=== PATIENT | male | born 1970 | race African-American/Black ===

== ENCOUNTER 2017-07-22 09:54 | Inpatient (IN) | payer MEDICAID, OTHER ==
[~2017-07-22] VITALS: Ht 165.1 cm; Wt 123.4 kg
[2017-07-22] VITALS (24 sets, daily range): BP systolic 155–224; BP diastolic 91–136
[2017-07-22] MEDS ORDERED: ASPIRIN 81MG TABLET PO ONE (10:45)
[2017-07-22] MEDS ORDERED: NITROGLYCERIN OINT 1GM/INCH UDPKT TD ONE (10:45)
[2017-07-22] MEDS ORDERED: FUROSEMIDE 40MG/4ML VIAL IV ONE (10:45)
[2017-07-22 10:47] LABS: BASOPHILS % 1.4 % (0.0-2.0); EOSINOPHILS % 3.7 % (0.0-5.0); HEMATOCRIT. 41.7 % (42.0-52.0); LYMPHOCYTES % 19.6 % (20.0-50.0); MEAN CORPUSCULAR HEMOGLOBIN 27.1 pg (28.0-32.0); MEAN PLATELET VOLUME 7.8 fl (7.4-10.4); MONOCYTES % 11.2 % (2.0-8.0); NEUTROPHILS % 64.1 % (40.0-76.0); PLATELET 366 x1000/uL (130-400); RED BLOOD CELL COUNT 5.15 mill/uL (4.7-6.1); RED CELL DISTRIBUTION WIDTH 16.4 % (11.6-14.6)
[2017-07-22 10:54] LABS: CHLORIDE 103 mEq/L (98-107)
[2017-07-22 10:55] LABS: PROTHROMBIN TIME 10.4 sec (9.4-11.6)
[2017-07-22] MEDS ORDERED: NITROGLYCERIN 0.4MG TABLET SL SL ONE (11:45)
[2017-07-22] MEDS ORDERED: DEXTROSE 50% WATER 50ML SYRINGE IV ONE (11:45)
[2017-07-22] MEDS ORDERED: INSULIN REGULAR (HUMULIN R) 300UNITS/3ML IV ONE (11:45)
[2017-07-22] MEDS: ALBUTEROL (0.083%) 2.5MG/3ML NEB HHN SCH ×4 (12:00→13:57)
[2017-07-22 12:03] LABS: *AMPHETAMINES SCREEN URINE NEGATIVE (NEGATIVE); *BARBITURATES SCREEN URINE NEGATIVE (NEGATIVE); *BENZODIAZEPINES SCREEN URINE NEGATIVE (NEGATIVE); *COCAINE SCREEN URINE NEGATIVE (NEGATIVE); METHADONE URINE SCREEN NEGATIVE (NEGATIVE)
[2017-07-22 12:04] LABS: CANNABINOID URINE SCREEN NEGATIVE (NEGATIVE); OPIATES URINE SCREEN NEGATIVE (NEGATIVE); PHENCYCLIDINE URINE SCREEN NEGATIVE (NEGATIVE)
[2017-07-22] MEDS ORDERED: NITROGLYCERIN 50MG PREMIX 250 ML IV ONE (12:45)
[2017-07-22] MEDS ORDERED: LOSARTAN POTASSIUM 50 MG TABLET PO SCH (15:45)
[2017-07-22] MEDS: FUROSEMIDE 40MG/4ML VIAL IVP SCH (18:18)
[2017-07-22] MEDS: CARVEDILOL 6.25 MG TABLET PO SCH (18:19)
[2017-07-22] MEDS ORDERED: ONDANSETRON HCL 4MG/2ML VIAL IV PRN (18:30)
[2017-07-22] MEDS ORDERED: MAGNESIUM/ALUMINUM HYDROXIDE/SIMETHICONE 30ML UDC PO PRN (18:30)
[2017-07-22] MEDS: NITROGLYCERIN 50MG PREMIX 250 ML IV PRN ×2 (18:46→23:49)
[2017-07-22] MEDS ORDERED: DEXTROSE 50% WATER 50ML SYRINGE IV PRN (19:15)
[2017-07-22] MEDS: FAMOTIDINE 20MG TABLET PO SCH (20:41)
[2017-07-22] MEDS: BLOOD SUGAR DIAGNOSTIC STRIP TEST SCH (20:42)
[2017-07-22] MEDS: INSULIN LISPRO 100 UNITS/ML SUBCUT SCH (20:42)
[2017-07-22] MEDS ORDERED: AMLODIPINE 5MG TABLET PO SCH (21:00)
[2017-07-22] MEDS: ACETAMINOPHEN 325MG TABLET PO PRN (21:03)
[2017-07-22 21:29] LABS: CLARITY URINE CLEAR (CLEAR); COLOR URINE YELLOW (YELLOW); KETONES URINE NEGATIVE (NEGATIVE); LEUKOCYTE ESTERASE URINE NEGATIVE (NEGATIVE); NITRITE URINE NEGATIVE (NEGATIVE); OCCULT BLOOD URINE TRACE (NEGATIVE); PH URINE 6.5 (4.5-8.0); PROTEIN URINE 3+ (NEGATIVE); SPECIFIC GRAVITY URINE 1.016 (1.005-1.030)
[2017-07-22] MEDS ORDERED: NITROGLYCERIN OINT 1GM/INCH UDPKT TD SCH (22:00)
[2017-07-23] VITALS (70 sets, daily range): BP systolic 130–198; BP diastolic 73–126
[2017-07-23] MEDS: NITROGLYCERIN 50MG PREMIX 250 ML IV PRN (04:32)
[2017-07-23] MEDS: FUROSEMIDE 40MG/4ML VIAL IVP SCH ×2 (06:16→16:59)
[2017-07-23] MEDS: INSULIN LISPRO 100 UNITS/ML SUBCUT SCH ×4 (06:17→21:29)
[2017-07-23] MEDS: BLOOD SUGAR DIAGNOSTIC STRIP TEST SCH ×3 (06:17→21:28)
[2017-07-23 06:21] LABS: CHLORIDE 101 mEq/L (98-107)
[2017-07-23 06:31] LABS: BASOPHILS % 0.5 % (0.0-2.0); EOSINOPHILS % 1.1 % (0.0-5.0); HEMATOCRIT. 35.9 % (42.0-52.0); HEMOGLOBIN. 11.9 g/dL (14.0-18.0); LYMPHOCYTES % 10.9 % (20.0-50.0); MEAN CORPUSCULAR HEMOGLOBIN 26.9 pg (28.0-32.0); MEAN CORPUSCULAR VOLUME 81.1 fL (80.0-94.0); MEAN PLATELET VOLUME 7.8 fl (7.4-10.4); MONOCYTES % 13.9 % (2.0-8.0); NEUTROPHILS % 73.6 % (40.0-76.0); PLATELET 324 x1000/uL (130-400); RED BLOOD CELL COUNT 4.43 mill/uL (4.7-6.1); RED CELL DISTRIBUTION WIDTH 16.3 % (11.6-14.6)
[2017-07-23 06:32] LABS: CREATINE KINASE 134 IU/L (39-308)
[2017-07-23 06:34] LABS: CREATINE KINASE MB FRACTION < 0.5 ng/mL (0.5-3.6)
[2017-07-23] MEDS: LOSARTAN POTASSIUM 50 MG TABLET PO SCH ×2 (09:46→21:28)
[2017-07-23] MEDS: POTASSIUM CHLORIDE 20MEQ TABLET SR PO SCH (09:46)
[2017-07-23] MEDS: NIFEDIPINE XL 60MG TAB PO SCH ×2 (09:46→21:28)
[2017-07-23] MEDS: CARVEDILOL 6.25 MG TABLET PO SCH ×2 (09:46→16:59)
[2017-07-23] MEDS ORDERED: MAGNESIUM 2 G PREMIX 50 ML IV SCH (11:00)
[2017-07-23] MEDS: CLONIDINE 0.1MG TABLET PO PRN ×2 (12:30→21:47)
[2017-07-23] MEDS: CLONIDINE 0.2MG TABLET PO SCH ×2 (14:48→21:51)
[2017-07-23] MEDS: HYDRALAZINE HCL 50MG TABLET PO SCH ×2 (14:48→21:48)
[2017-07-23 18:04] LABS: BG BASE EXCESS 1.3 mmol/L (-2.0-2.0); BG CARBOXYHEMOGLOBIN 0.5 % (0.5-1.5); BG DEOXYHEMOGLOBIN 5.1 % (0.0-5.0); BG HCO3 ACT 24.1 mmol/L (22.0-26.0); BG METHEMOGLOBIN 0.3 % (0.0-1.5); BG OXYGEN SATURATION 94.9 % (92.0-98.5); BG OXYHEMOGLOBIN 94.1 % (94.0-97.0); BG PCO2 32.7 mmHg (35.0-45.0); BG PH 7.485 (7.350-7.450); BG PO2 73.4 mmHg (75.0-100.0); BG SAMPLE SITE RIGHT RADIAL; BG TOTAL HEMOGLOBIN 13.7 g/dL (12.0-18.0); BG VENT MODE ROOM AIR
[2017-07-23 18:13] LABS: INR 1.1; PROTHROMBIN TIME 10.9 sec (9.4-11.6)
[2017-07-23] MEDS ORDERED: BLOOD SUGAR DIAGNOSTIC STRIP TEST SCH (21:00)
[2017-07-23] MEDS: FAMOTIDINE 20MG TABLET PO SCH (21:28)
[2017-07-24] VITALS (31 sets, daily range): BP systolic 108–166; BP diastolic 58–92
[2017-07-24] MEDS: BLOOD SUGAR DIAGNOSTIC STRIP TEST SCH ×4 (05:57→21:49)
[2017-07-24] MEDS: HYDRALAZINE HCL 50MG TABLET PO SCH ×3 (06:00→21:48)
[2017-07-24] MEDS: CLONIDINE 0.2MG TABLET PO SCH (06:00)
[2017-07-24] MEDS: INSULIN LISPRO 100 UNITS/ML SUBCUT SCH ×4 (06:09→21:50)
[2017-07-24] MEDS: FUROSEMIDE 40MG/4ML VIAL IVP SCH (06:17)
[2017-07-24 06:24] LABS: BASOPHILS % 0.5 % (0.0-2.0); EOSINOPHILS % 3.7 % (0.0-5.0); HEMATOCRIT. 38.2 % (42.0-52.0); HEMOGLOBIN. 12.7 g/dL (14.0-18.0); LYMPHOCYTES % 15.7 % (20.0-50.0); MEAN CORPUSCULAR VOLUME 81.4 fL (80.0-94.0); MEAN PLATELET VOLUME 7.8 fl (7.4-10.4); MONOCYTES % 13.5 % (2.0-8.0); NEUTROPHILS % 66.6 % (40.0-76.0); PLATELET 351 x1000/uL (130-400); RED BLOOD CELL COUNT 4.69 mill/uL (4.7-6.1); RED CELL DISTRIBUTION WIDTH 16.3 % (11.6-14.6)
[2017-07-24] MEDS: POTASSIUM CHLORIDE 20MEQ TABLET SR PO SCH (10:09)
[2017-07-24] MEDS: NIFEDIPINE XL 60MG TAB PO SCH ×2 (10:09→21:48)
[2017-07-24] MEDS: LOSARTAN POTASSIUM 50 MG TABLET PO SCH ×2 (10:09→21:48)
[2017-07-24] MEDS: CARVEDILOL 6.25 MG TABLET PO SCH ×2 (10:10→18:12)
[2017-07-24] MEDS ORDERED: LIDOCAINE HCL/PF 1% 10 MG/ML 5ML VIAL ONE (10:33)
[2017-07-24] MEDS: IPRATROPIUM/ALBUTEROL 0.5-3(2.5)MG/3ML NEB INH PRN ×2 (11:54→20:55)
[2017-07-24] MEDS: DOCUSATE SODIUM 100MG CAPSULE PO PRN (13:26)
[2017-07-24] MEDS: CLONIDINE 0.1MG TABLET PO SCH ×2 (13:26→21:48)
[2017-07-24 17:26] LABS: ETHANOL BLOOD < 10 mg/dL
[2017-07-24 17:32] LABS: T4 FREE 1.05 ng/dL (0.76-1.46)
[2017-07-24 18:07] LABS: FOLIC ACID (FOLATE) SERUM 12.3 ng/mL (>5.38)
[2017-07-24] MEDS: FAMOTIDINE 20MG TABLET PO SCH (21:46)
[2017-07-25] VITALS: BP 142/94
[2017-07-25 04:00] VITALS: BP 140/90
[2017-07-25] MEDS: HYDRALAZINE HCL 50MG TABLET PO SCH ×3 (06:19→21:28)
[2017-07-25] MEDS: CLONIDINE 0.1MG TABLET PO SCH ×3 (06:19→21:25)
[2017-07-25] MEDS: DOCUSATE SODIUM 100MG CAPSULE PO PRN (06:19)
[2017-07-25] MEDS: BLOOD SUGAR DIAGNOSTIC STRIP TEST SCH ×4 (07:00→21:20)
[2017-07-25] MEDS: INSULIN LISPRO 100 UNITS/ML SUBCUT SCH ×4 (07:00→21:22)
[2017-07-25 08:00] VITALS: BP 122/74
[2017-07-25 08:06] LABS: BG CARBOXYHEMOGLOBIN 0.1 % (0.5-1.5); BG DEOXYHEMOGLOBIN 4.1 % (0.0-5.0); BG METHEMOGLOBIN 0.1 % (0.0-1.5); BG OXYGEN SATURATION 95.9 % (92.0-98.5); BG OXYHEMOGLOBIN 95.7 % (94.0-97.0); BG PH 7.479 (7.350-7.450); BG PO2 80.3 mmHg (75.0-100.0); BG SAMPLE SITE RIGHT RADIAL; BG VENT MODE ROOM AIR
[2017-07-25] MEDS: GUAIFENESIN/CODEINE 200-20MG/10ML UDC PO PRN ×2 (10:27→16:59)
[2017-07-25] MEDS: BENZONATATE 100MG CAPSULE PO SCH ×3 (10:27→21:24)
[2017-07-25] MEDS: NIFEDIPINE XL 60MG TAB PO SCH ×2 (10:28→21:25)
[2017-07-25] MEDS: CARVEDILOL 6.25 MG TABLET PO SCH ×2 (10:28→16:59)
[2017-07-25] MEDS: LOSARTAN POTASSIUM 50 MG TABLET PO SCH ×2 (10:28→21:25)
[2017-07-25 11:12] LABS: HEMATOCRIT. 39.8 % (42.0-52.0); MEAN CORPUSCULAR HEMOGLOBIN 26.7 pg (28.0-32.0); MEAN CORPUSCULAR VOLUME 81.6 fL (80.0-94.0); MEAN PLATELET VOLUME 7.8 fl (7.4-10.4); PLATELET 361 x1000/uL (130-400); RED BLOOD CELL COUNT 4.88 mill/uL (4.7-6.1); RED CELL DISTRIBUTION WIDTH 16.2 % (11.6-14.6)
[2017-07-25 12:00] VITALS: BP 132/71
[2017-07-25] MEDS ORDERED: REGADENOSON 0.4 MG/5 ML IV ONE (15:45)
[2017-07-25 16:06] VITALS: BP 136/86
[2017-07-25 19:12] LABS: PLATELET ESTIMATE NORMAL
[2017-07-25 20:00] VITALS: BP 121/72
[2017-07-25] MEDS: FAMOTIDINE 20MG TABLET PO SCH (21:24)
[2017-07-26] VITALS: BP 133/71
[2017-07-26 04:00] VITALS: BP 150/89
[2017-07-26] MEDS: CLONIDINE 0.1MG TABLET PO SCH ×3 (05:32→21:34)
[2017-07-26] MEDS: HYDRALAZINE HCL 50MG TABLET PO SCH ×3 (05:32→21:34)
[2017-07-26] MEDS: BENZONATATE 100MG CAPSULE PO SCH ×3 (05:35→21:33)
[2017-07-26 07:04] LABS: HEMATOCRIT. 39.2 % (42.0-52.0); MEAN CORPUSCULAR HEMOGLOBIN 26.9 pg (28.0-32.0); MEAN CORPUSCULAR VOLUME 81.3 fL (80.0-94.0); PLATELET 350 x1000/uL (130-400); RED BLOOD CELL COUNT 4.82 mill/uL (4.7-6.1); RED CELL DISTRIBUTION WIDTH 16.3 % (11.6-14.6)
[2017-07-26] MEDS: INSULIN LISPRO 100 UNITS/ML SUBCUT SCH ×4 (07:04→21:33)
[2017-07-26] MEDS: BLOOD SUGAR DIAGNOSTIC STRIP TEST SCH ×4 (07:04→21:35)
[2017-07-26] MEDS ORDERED: REGADENOSON 0.4 MG/5 ML IV ONE (08:14)
[2017-07-26 09:10] LABS: ANTI-NUCLEAR ANTIBODIES DIRECT Negative (Negative)
[2017-07-26 09:28] VITALS: BP 120/69
[2017-07-26] MEDS: LOSARTAN POTASSIUM 50 MG TABLET PO SCH ×2 (09:44→21:34)
[2017-07-26] MEDS: CARVEDILOL 6.25 MG TABLET PO SCH ×3 (09:50→17:31)
[2017-07-26] MEDS: NIFEDIPINE XL 60MG TAB PO SCH ×2 (09:50→21:33)
[2017-07-26 10:00] VITALS: BP 134/84
[2017-07-26 16:00] VITALS: BP 115/73
[2017-07-26] MEDS: DOCUSATE SODIUM 100MG CAPSULE PO PRN (17:30)
[2017-07-26 20:00] VITALS: BP 143/77
[2017-07-26] MEDS: FAMOTIDINE 20MG TABLET PO SCH (21:34)
[2017-07-26] MEDS: POLYETHYLENE GLYCOL 3350 (17GM) 1 DOSE PACK PO SCH (21:35)
[2017-07-27] VITALS: BP 119/66
[2017-07-27] MEDS: HYDROCODONE/ACETAMINOPHEN 5/325MG TABLET PO PRN ×2 (00:03→10:08)
[2017-07-27 04:00] VITALS: BP 147/90
[2017-07-27] MEDS: CLONIDINE 0.1MG TABLET PO SCH ×3 (06:21→21:36)
[2017-07-27] MEDS: HYDRALAZINE HCL 50MG TABLET PO SCH ×3 (06:21→21:10)
[2017-07-27] MEDS: BENZONATATE 100MG CAPSULE PO SCH ×3 (06:21→21:37)
[2017-07-27] MEDS: BLOOD SUGAR DIAGNOSTIC STRIP TEST SCH ×4 (06:21→21:37)
[2017-07-27 07:25] LABS: PLATELET ESTIMATE NORMAL
[2017-07-27] MEDS: INSULIN LISPRO 100 UNITS/ML SUBCUT SCH ×4 (07:31→21:29)
[2017-07-27 08:00] VITALS: BP 136/76
[2017-07-27] MEDS: CARVEDILOL 6.25 MG TABLET PO SCH ×2 (08:52→18:07)
[2017-07-27] MEDS: NIFEDIPINE XL 60MG TAB PO SCH ×2 (08:52→21:10)
[2017-07-27] MEDS: POLYETHYLENE GLYCOL 3350 (17GM) 1 DOSE PACK PO SCH (08:53)
[2017-07-27] MEDS: LOSARTAN POTASSIUM 50 MG TABLET PO SCH ×2 (08:53→21:37)
[2017-07-27 12:00] VITALS: BP 138/75
[2017-07-27 12:23] LABS: HEMATOCRIT. 36.7 % (42.0-52.0); HEMOGLOBIN. 12.1 g/dL (14.0-18.0); MEAN CORPUSCULAR HEMOGLOBIN 26.6 pg (28.0-32.0); MEAN CORPUSCULAR VOLUME 80.5 fL (80.0-94.0); MEAN PLATELET VOLUME 7.2 fl (7.4-10.4); PLATELET 377 x1000/uL (130-400); RED BLOOD CELL COUNT 4.56 mill/uL (4.7-6.1)
[2017-07-27 12:43] LABS: PLATELET ESTIMATE NORMAL
[2017-07-27 16:00] VITALS: BP 126/75
[2017-07-27 20:00] VITALS: BP 147/90
[2017-07-27] MEDS: FAMOTIDINE 20MG TABLET PO SCH (21:10)
[2017-07-28] VITALS: BP 148/90
[2017-07-28] MEDS: ACETAMINOPHEN 325MG TABLET PO PRN (01:46)
[2017-07-28 04:00] VITALS: BP 148/82
[2017-07-28] MEDS: INSULIN LISPRO 100 UNITS/ML SUBCUT SCH ×4 (06:51→21:00)
[2017-07-28] MEDS: HYDRALAZINE HCL 50MG TABLET PO SCH ×3 (06:52→21:25)
[2017-07-28] MEDS: BLOOD SUGAR DIAGNOSTIC STRIP TEST SCH ×4 (06:53→21:00)
[2017-07-28] MEDS: CLONIDINE 0.1MG TABLET PO SCH ×3 (06:53→21:24)
[2017-07-28] MEDS: BENZONATATE 100MG CAPSULE PO SCH ×3 (06:53→21:25)
[2017-07-28 06:57] LABS: HEMATOCRIT. 36.4 % (42.0-52.0); HEMOGLOBIN. 12.3 g/dL (14.0-18.0); MEAN CORPUSCULAR HEMOGLOBIN 27.5 pg (28.0-32.0); MEAN CORPUSCULAR VOLUME 81.2 fL (80.0-94.0); MEAN PLATELET VOLUME 7.8 fl (7.4-10.4); PLATELET 396 x1000/uL (130-400); RED BLOOD CELL COUNT 4.48 mill/uL (4.7-6.1); RED CELL DISTRIBUTION WIDTH 16.2 % (11.6-14.6)
[2017-07-28] MEDS ORDERED: HYDROCODONE/ACETAMINOPHEN 5/325MG TABLET PO PRN (07:45)
[2017-07-28 08:00] VITALS: BP 125/94
[2017-07-28] MEDS: LOSARTAN POTASSIUM 50 MG TABLET PO SCH ×2 (08:14→21:25)
[2017-07-28] MEDS: NIFEDIPINE XL 60MG TAB PO SCH ×2 (08:14→21:25)
[2017-07-28] MEDS: CARVEDILOL 6.25 MG TABLET PO SCH ×2 (08:15→17:22)
[2017-07-28] MEDS: POLYETHYLENE GLYCOL 3350 (17GM) 1 DOSE PACK PO SCH (08:17)
[2017-07-28 10:38] LABS: PLATELET ESTIMATE NORMAL
[2017-07-28 12:00] VITALS: BP 148/84
[2017-07-28 16:00] VITALS: BP 153/83
[2017-07-28] MEDS ORDERED: COLCHICINE 0.6MG TABLET PO NR (17:00)
[2017-07-28 20:00] VITALS: BP 150/81
[2017-07-28] MEDS: COLCHICINE 0.6MG TABLET PO SCH (21:25)
[2017-07-28] MEDS: FAMOTIDINE 20MG TABLET PO SCH (21:25)
[2017-07-29 00:01] VITALS: BP 136/81
[2017-07-29 04:00] VITALS: BP 133/74
[2017-07-29] MEDS: CLONIDINE 0.1MG TABLET PO SCH ×3 (05:56→23:25)
[2017-07-29] MEDS: INSULIN LISPRO 100 UNITS/ML SUBCUT SCH ×4 (05:56→22:07)
[2017-07-29] MEDS: BENZONATATE 100MG CAPSULE PO SCH ×3 (05:56→22:05)
[2017-07-29] MEDS: BLOOD SUGAR DIAGNOSTIC STRIP TEST SCH ×4 (05:56→21:28)
[2017-07-29] MEDS: HYDRALAZINE HCL 50MG TABLET PO SCH ×2 (05:59→22:05)
[2017-07-29 06:33] LABS: HEMATOCRIT. 36.6 % (42.0-52.0); HEMOGLOBIN. 12.1 g/dL (14.0-18.0); MEAN CORPUSCULAR HEMOGLOBIN 26.7 pg (28.0-32.0); MEAN CORPUSCULAR VOLUME 80.7 fL (80.0-94.0); MEAN PLATELET VOLUME 7.5 fl (7.4-10.4); PLATELET 397 x1000/uL (130-400); RED BLOOD CELL COUNT 4.54 mill/uL (4.7-6.1); RED CELL DISTRIBUTION WIDTH 16.1 % (11.6-14.6)
[2017-07-29 08:00] VITALS: BP 121/72
[2017-07-29] MEDS ORDERED: ALLOPURINOL 100 MG TABLET PO SCH (09:00)
[2017-07-29] MEDS: POLYETHYLENE GLYCOL 3350 (17GM) 1 DOSE PACK PO SCH (09:00)
[2017-07-29] MEDS: LOSARTAN POTASSIUM 50 MG TABLET PO SCH ×2 (09:08→22:05)
[2017-07-29] MEDS: COLCHICINE 0.6MG TABLET PO SCH ×2 (09:08→22:05)
[2017-07-29] MEDS: NIFEDIPINE XL 60MG TAB PO SCH ×2 (09:09→22:06)
[2017-07-29] MEDS: CARVEDILOL 6.25 MG TABLET PO SCH ×2 (09:09→16:59)
[2017-07-29 12:00] VITALS: BP 149/84
[2017-07-29 13:02] LABS: PLATELET ESTIMATE NORMAL
[2017-07-29 16:00] VITALS: BP 165/93
[2017-07-29 20:00] VITALS: BP 156/86
[2017-07-29] MEDS: FAMOTIDINE 20MG TABLET PO SCH (22:05)
[2017-07-29] MEDS: METHYLPREDNISOLONE SOD SUCC 40 MG/ML VIAL IV SCH (23:29)
[2017-07-30] VITALS: BP 158/90
[2017-07-30 04:00] VITALS: BP 158/91
[2017-07-30] MEDS: METHYLPREDNISOLONE SOD SUCC 40 MG/ML VIAL IV SCH ×3 (06:02→17:33)
[2017-07-30] MEDS: BLOOD SUGAR DIAGNOSTIC STRIP TEST SCH ×4 (06:09→21:11)
[2017-07-30] MEDS: BENZONATATE 100MG CAPSULE PO SCH ×3 (06:43→22:07)
[2017-07-30] MEDS: INSULIN LISPRO 100 UNITS/ML SUBCUT SCH ×4 (06:43→22:10)
[2017-07-30] MEDS: CLONIDINE 0.1MG TABLET PO SCH ×3 (06:43→22:08)
[2017-07-30] MEDS: HYDRALAZINE HCL 50MG TABLET PO SCH ×3 (06:43→22:08)
[2017-07-30 07:18] LABS: CHLORIDE 102 mEq/L (98-107)
[2017-07-30 07:19] LABS: BASOPHILS % 0.4 % (0.0-2.0); HEMOGLOBIN. 12.8 g/dL (14.0-18.0); LYMPHOCYTES % 9.9 % (20.0-50.0); MEAN CORPUSCULAR HEMOGLOBIN 26.6 pg (28.0-32.0); MEAN CORPUSCULAR VOLUME 81.3 fL (80.0-94.0); MEAN PLATELET VOLUME 7.7 fl (7.4-10.4); MONOCYTES % 3.9 % (2.0-8.0); NEUTROPHILS % 85.8 % (40.0-76.0); PLATELET 450 x1000/uL (130-400); RED CELL DISTRIBUTION WIDTH 15.7 % (11.6-14.6)
[2017-07-30 07:27] LABS: GAMMA GLUTAMYL TRANSPEPTIDASE 11 IU/L (11-50)
[2017-07-30 08:00] VITALS: BP 138/82
[2017-07-30] MEDS: LOSARTAN POTASSIUM 50 MG TABLET PO SCH ×2 (08:23→22:08)
[2017-07-30] MEDS: CARVEDILOL 6.25 MG TABLET PO SCH ×2 (08:23→17:33)
[2017-07-30] MEDS: NIFEDIPINE XL 60MG TAB PO SCH ×2 (08:24→22:08)
[2017-07-30] MEDS: POLYETHYLENE GLYCOL 3350 (17GM) 1 DOSE PACK PO SCH (08:24)
[2017-07-30] MEDS: ALLOPURINOL 100 MG TABLET PO SCH (08:25)
[2017-07-30 10:09] LABS: AChR BLOCKING ABS SERUM 18 % (0-25)
[2017-07-30 10:44] LABS: HEPATITIS B SURFACE ANTIGEN NEGATIVE
[2017-07-30 11:12] LABS: HEPATITIS B CORE AB IGM NEGATIVE
[2017-07-30 11:14] LABS: HEPATITIS A AB IGM NEGATIVE (NEGATIVE)
[2017-07-30 12:00] VITALS: BP 146/85
[2017-07-30 16:00] VITALS: BP 161/87
[2017-07-30 20:00] VITALS: BP 165/85
[2017-07-30] MEDS: FAMOTIDINE 20MG TABLET PO SCH (22:08)
[2017-07-31] VITALS (7 sets, daily range): BP systolic 126–168; BP diastolic 74–92
[2017-07-31] MEDS: METHYLPREDNISOLONE SOD SUCC 40 MG/ML VIAL IV SCH ×5 (00:45→23:07)
[2017-07-31] MEDS: BLOOD SUGAR DIAGNOSTIC STRIP TEST SCH ×4 (06:37→21:25)
[2017-07-31] MEDS: HYDRALAZINE HCL 50MG TABLET PO SCH ×3 (06:40→21:25)
[2017-07-31] MEDS: CLONIDINE 0.1MG TABLET PO SCH ×3 (06:41→21:25)
[2017-07-31] MEDS: INSULIN LISPRO 100 UNITS/ML SUBCUT SCH ×4 (06:43→20:59)
[2017-07-31] MEDS: BENZONATATE 100MG CAPSULE PO SCH ×3 (06:44→21:25)
[2017-07-31 06:57] LABS: HEMATOCRIT. 37.5 % (42.0-52.0); HEMOGLOBIN. 12.2 g/dL (14.0-18.0); MEAN CORPUSCULAR HEMOGLOBIN 26.5 pg (28.0-32.0); MEAN CORPUSCULAR VOLUME 81.4 fL (80.0-94.0); MEAN PLATELET VOLUME 7.5 fl (7.4-10.4); PLATELET 446 x1000/uL (130-400); RED BLOOD CELL COUNT 4.61 mill/uL (4.7-6.1); RED CELL DISTRIBUTION WIDTH 15.8 % (11.6-14.6)
[2017-07-31 07:15] LABS: PHOSPHORUS 4.1 mg/dL (2.5-4.9)
[2017-07-31] MEDS: LOSARTAN POTASSIUM 50 MG TABLET PO SCH ×2 (08:41→20:43)
[2017-07-31] MEDS: NIFEDIPINE XL 60MG TAB PO SCH ×2 (08:41→20:43)
[2017-07-31] MEDS: CARVEDILOL 6.25 MG TABLET PO SCH ×2 (08:41→17:53)
[2017-07-31] MEDS: ALLOPURINOL 100 MG TABLET PO SCH (08:42)
[2017-07-31] MEDS: POLYETHYLENE GLYCOL 3350 (17GM) 1 DOSE PACK PO SCH (08:42)
[2017-07-31 16:01] LABS: PLATELET ESTIMATE INCREASED
[2017-07-31 17:07] LABS: ANTI-DNA DOUBLE STRANDED QUANT < 1 IU/mL (0-9)
[2017-07-31] MEDS ORDERED: ALLOPURINOL 100 MG TABLET PO SCH (17:30)
[2017-07-31] MEDS: FAMOTIDINE 20MG TABLET PO SCH (20:43)
[2017-08-01] VITALS: BP 153/65
[2017-08-01 04:00] VITALS: BP 143/73
[2017-08-01] MEDS: HYDRALAZINE HCL 50MG TABLET PO SCH ×2 (05:53→13:22)
[2017-08-01] MEDS: CLONIDINE 0.1MG TABLET PO SCH ×2 (05:53→13:22)
[2017-08-01] MEDS: BENZONATATE 100MG CAPSULE PO SCH ×2 (05:54→13:22)
[2017-08-01] MEDS: INSULIN LISPRO 100 UNITS/ML SUBCUT SCH ×2 (06:03→13:24)
[2017-08-01] MEDS: BLOOD SUGAR DIAGNOSTIC STRIP TEST SCH ×2 (06:04→11:51)
[2017-08-01 07:22] LABS: HEMATOCRIT. 36.9 % (42.0-52.0); MEAN CORPUSCULAR HEMOGLOBIN 26.5 pg (28.0-32.0); MEAN CORPUSCULAR VOLUME 81.7 fL (80.0-94.0); MEAN PLATELET VOLUME 7.4 fl (7.4-10.4); PLATELET 495 x1000/uL (130-400); RED BLOOD CELL COUNT 4.52 mill/uL (4.7-6.1); RED CELL DISTRIBUTION WIDTH 15.7 % (11.6-14.6)
[2017-08-01 08:00] VITALS: BP 163/92
[2017-08-01] MEDS: LOSARTAN POTASSIUM 50 MG TABLET PO SCH (08:50)
[2017-08-01] MEDS: PREDNISONE 20MG TABLET PO SCH ×2 (08:50→13:21)
[2017-08-01] MEDS: NIFEDIPINE XL 60MG TAB PO SCH (08:50)
[2017-08-01] MEDS: POLYETHYLENE GLYCOL 3350 (17GM) 1 DOSE PACK PO SCH (08:51)
[2017-08-01] MEDS ORDERED: CARVEDILOL 12.5MG TABLET PO SCH (09:00)
[2017-08-01] MEDS ORDERED: ALLOPURINOL 300 MG TABLET PO SCH (09:00)
[2017-08-01 09:09] LABS: ALDOLASE 4.8 U/L (3.3-10.3); ANGIOTENSION CONVERTING ENZYME 26 U/L (14-82); COMPLEMENT C3 225 mg/dL (82-167)
[2017-08-01] MEDS ORDERED: ALLO300T2 PO (10:18)
[2017-08-01] MEDS ORDERED: BENZ100C86 PO (10:18)
[2017-08-01] MEDS ORDERED: LIP40 PO (10:18)
[2017-08-01] MEDS ORDERED: COR12 PO (10:18)
[2017-08-01] MEDS ORDERED: P20 PO (10:18)
[2017-08-01] MEDS ORDERED: FAMO20TA8 PO (10:18)
[2017-08-01] MEDS ORDERED: LOSA50TA3 PO (10:18)
[2017-08-01] MEDS ORDERED: HYDR-4135 PO (10:18)
[2017-08-01 10:39] VITALS: BP 141/76
[2017-08-01 12:00] VITALS: BP 172/90
[2017-08-01 13:07] LABS: ATYPICAL P-ANCA <1:20 titer (Neg:<1:20); CYTOPLASMIC C-ANCA <1:20 titer (Neg:<1:20); PERINUCLEAR P-ANCA <1:20 titer (Neg:<1:20)
[2017-08-01 17:26] LABS: PLATELET ESTIMATE INCREASED
[2017-08-01 19:10] LABS: CYC CITRULLINATED PEP IgG/IgA 11 units (0-19); RNP ANTIBODY 0.2 AI (0.0-0.9); SMITH ANTIBODY < 0.2 AI (0.0-0.9)
[2017-08-01] MEDS ORDERED: ATORVASTATIN CALCIUM 40MG TABLET PO SCH (21:00)
[2017-08-02 13:10] LABS: ANTI-MYELOPEROXIDASE AB < 9.0 U/mL (0.0-9.0); ANTI-PROTEINASE 3 ABS < 3.5 U/mL (0.0-3.5)
[2017-08-02 15:08] LABS: ANTI-CARDIOLIPIN AB IGA < 9 APL U/mL (0-11); ANTI-CARDIOLIPIN AB IGG < 9 GPL U/mL (0-14); ANTI-CARDIOLIPIN AB IGM < 9 MPL U/mL (0-12)
== END 2017-08-01 16:25 | disposition home or self-care (01) | DRG 194 ==
LOC: ER 10:09 → EDBEDREQ 11:41 → EDBEDREQSVC 12:45 → MICUSO 14:13 → EDBEDREQSVC 14:17 → ENRESERV 14:38 → 8WST 07-24 14:52
PROVIDERS: ADMIT Internal Medicine; ATTEND Internal Medicine
DX: I13.0 Hypertensive heart and chronic kidney disease with heart failure and stage 1 through stage 4 chronic kidney disease, or unspecified chronic kidney disease (principal); J96.00 Acute respiratory failure, unspecified whether with hypoxia or hypercapnia; E43 Unspecified severe protein-calorie malnutrition; N17.9 Acute kidney failure, unspecified; E11.22 Type 2 diabetes mellitus with diabetic chronic kidney disease; E11.65 Type 2 diabetes mellitus with hyperglycemia; M35.00 Sjogren syndrome, unspecified; E87.5 Hyperkalemia; I50.23 Acute on chronic systolic (congestive) heart failure
CPT/HCPCS: 36415; 36600; 70450; 70544; 70551; 71045; 76770; 78452; 80048; 80053; 80061; 80305; 81003; 82085; 82164; 82375; 82550; 82553; 82595; 82607; 82746; 82805; 82962; 82977; 83036; 83519; 83520; 83735; 83880; 84100; 84132; 84439; 84443; 84481; 84484; 84550; 85025; 85384; 85610; 85651; 86038; 86140; 86147; 86160; 86200; 86225; 86235; 86256; 86431; 86592; 86705; 86709; 86803; 87340; 93005; 93017; 93306; 93880; 93970; 94640; 94660; 96365; 96366; 96375; 97116; 97162; 97530; 99291; A9500; G0482; J1815; J1940; J2785; J2920; J3475; J3490; J7040; J7512; J7611; J7620

== ENCOUNTER 2019-04-15 22:11 | Emergency (ER) | payer MEDICAID ==
[~2019-04-15] VITALS: Ht 177.8 cm; Wt 110.0 kg
[~2019-04-15 22:11] MED LIST: ALLO300T2 PO; BENZ100C86 PO; COR12 PO; FAMO20TA8 PO; HYDR-4135 PO; LIP40 PO; LOSA50TA3 PO; P20 PO
[2019-04-15 22:16] VITALS: BP 0/0
== END 2019-04-15 22:27 | disposition expired ==
LOC: ER 22:11
DX: I46.9 Cardiac arrest, cause unspecified (principal); I11.0 Hypertensive heart disease with heart failure; I50.9 Heart failure, unspecified; E11.9 Type 2 diabetes mellitus without complications; Z88.0 Allergy status to penicillin
CPT/HCPCS: 31500; 92950; 99285